=== PATIENT | female | born 1975 | race Caucasian/White ===

== ENCOUNTER 2018-10-30 22:36 | Emergency (ER) | payer OTHER, SELFPAY ==
[2018-10-30 22:45] VITALS: BP 148/120; PULSE 72; RESP 22; TEMP 36.4; O2SAT 100; BMI 20.1
--- NOTE | 2018-10-30 22:55 | DI.RAD.S_ITS ---
PROCEDURE: XR CHEST 1V INDICATIONS: chest pain TECHNIQUE: One view of the chest was acquired. COMPARISON: None. FINDINGS: Surgical changes and devices: None. Lungs and pleura: Lungs are clear. No pleural effusions or pneumothorax. Mediastinum: Mediastinal contours appear normal. Heart size is normal. Bones and chest wall: No suspicious bony lesions. Overlying soft tissues appear unremarkable. IMPRESSION: Normal for age, source of current chest pain symptoms is not seen. Note: These findings are concordant with the preliminary interpretation. Dictated by: Juan Diego Sanford M.D. on 10/31/2018 at 8:06 Approved by: Juan Diego Sanford M.D. on 10/31/2018 at 8:07
[2018-10-30 23:08] VITALS: BP 99/65; PULSE 70; RESP 18; O2SAT 98
--- NOTE | 2018-10-30 23:21 | PC.NURSE ---
pt reports woke this AM with extreme fatigue, continued throughout day, approx 2100 acute onset stabbing chest pain and extreme weakness duration <10 min, denies cp/soa at time of exam, denies fever/chills/nausea/vomiting/diarrhea/dysuria/trauma or recent illness, nsr on monitor, normal resp rate/depth, c/o just tired
[2018-10-30 23:22] LABS: Prothrombin Time 11.1 SECONDS (10.1-12.7)
[2018-10-30 23:23] LABS: Add Manual Diff / Slide Review NO; Basophils Absolute Auto 0 /uL (0-100); Basophils Percent Auto 0.4 % (0-2); Eosinophils Absolute Auto 200 /uL (0-450); Eosinophils Percent Auto 3.3 % (2-4); Hemoglobin 12.9 g/dL (12.0-16.0); Lymphocytes Absolute Auto 2000 /uL (1100-4500); Lymphocytes Percent Auto 36.9 % (25-40); Mean Corpuscular HGB Conc 33.9 % (30-36); Mean Corpuscular Hemoglobin 31.9 PG (26-34); Mean Corpuscular Volume 94.1 fL (80-100); Monocytes Absolute Auto 500 /uL (0-900); Monocytes Percent Auto 8.6 % (3-14); Neutrophils Absolute Auto 2700 /uL (1500-7000); Neutrophils Percent Auto 50.8 % (50-75); Platelet Count 225 X10^3/uL (150-400); Red Blood Cell Count 4.04 X10^6/uL (4.0-5.2); Red Cell Distribution Width 13.3 % (11.6-14.8); White Blood Cell Count 5.3 X10^3/uL (4.5-11.0)
--- NOTE | 2018-10-30 23:24 | ED.CHESTPAIN ---
HPI - Chest Pain General Chief Complaint: Chest Pain Stated Complaint: DIFFICULTY BREATHING Time Seen by Provider: 10/30/18 23:00 Source: patient and family Mode of arrival: ambulatory Limitations: no limitations History of Present Illness HPI narrative: Patient is a 43-year-old female who presents with chest pain. She actually has been having extreme fatigue she says all day today and has not felt right. However he was lying in bed she felt some tingling in her arms and then she had severe sudden sternal chest pain. No radiation. It lasted for about 1 hour. It was so sharp felt like she could not catch her breath then she started breathing faster and still could not breathe. Is now resolved completely. She is having her thyroid workup for her fatigue. She actually has had a TSH and free T4 and antibodies checked at the [place] not happy with those results so she is going to a personnel research scientist this week. In no family history chest pain overall feeling better. MD complaint: chest pain Related Data Allergies Allergy/AdvReac Type Severity Reaction Status Date / Time No Known Drug Allergies Allergy Verified 10/30/18 22:47 Review of Systems Review of Systems ROS Unobtainable: All systems reviewed & are unremarkable except as noted in HPI and below Constitutional Denies chills, Reports fatigue, Denies frequent falls and Denies malaise ENT Ears, Nose, Mouth, and Throat: Denies change in voice, Denies dizziness, Denies neck pain and Denies sore throat Cardiovascular Reports chest pain, Denies irregular heart rhythm, Denies lightheadedness, Denies palpitations, Reports dyspnea and Denies orthopnea Respiratory Reports as per HPI, Denies cough, Reports dyspnea and Denies wheezing Gastrointestinal Gastrointestinal: Denies abdominal pain, Denies change in bowel habits, Denies diarrhea, Denies nausea and Denies vomiting Genitourinary Denies hematuria, Denies flank pain, Denies urinary incontinence and Denies urinary urgency Musculoskeletal Denies neck pain and Denies numbness Integumentary/Breasts Denies pruritus, Denies erythema, Denies rash and Denies wounds Neurologic Denies behavioral changes, Denies confusion, Denies dizziness, Denies frequent falls and Denies numbness Psychiatric Denies behavioral changes and Denies confusion Endocrine Reports fatigue and Denies palpitations Allergic/Immunologic Denies wheezing [facility] Medical History Patient denies significant medical history (Acute) Social History Smoking Status: Never smoker Social History Smoking Status: Never smoker Exam Initial Vital Signs Initial Vital Signs: Vital Signs Temperature 97.5 F L 10/30/18 22:45 Pulse Rate 72 10/30/18 22:45 Respiratory Rate 22 10/30/18 22:45 Blood Pressure 148/120 H 10/30/18 22:45 Pulse Oximetry 100 10/30/18 22:45 GENERAL: Well-appearing, well-nourished and in no acute distress. HEENT: Head atraumatic,EOMI, pupils reactive, face symmetric, moist mucous membranes CARDIOVASCULAR: Regular rate and rhythm without murmurs, rubs or gallops. RESPIRATORY: Breath sounds equal bilaterally, no wheezes rales or rhonchi. ABDOMEN: Soft, nontender. Normoactive bowel sounds all 4 quadrants. No guarding or rebound. EXTREMITIES: Normal range of motion, no clubbing or edema. Neurovascularly intact NEUROLOGICAL: Alert and oriented x4.Normal gait and speech. Cranial nerves II through XII grossly intact. SKIN: Warm, dry, no laceration, no petechiae, no rashes or lesions. Scores HEART Score Heart Score history: Slightly Suspicious Heart Score EKG: Normal Heart Score Age: < 45 years old Heart Score troponin: < or = to normal limit PERC Score Age greater than or equal to 50 years: No Heart rate greater than or equal to 100 bpm: No Room Air O2 Sat less than 95%: No Unilateral leg swelling: No Recent trauma or surgery: No Hemoptysis: No Prior PE or DVT: No Hormone Use: No Total PERC Score: 0 Wells' Criteria for PE Clinical signs and symptoms of PE: No PE is #1 Dx or equally likely: No Heart rate > 100: No Immobilization at least 3 days or surg in previous 4 weeks: No History of PE or DVT: No Hemoptysis: No Malignancy w/Treatment within 6 months or palliative: No Wells' PE Score total: 0 Course Orders Ordered: ED Orders 10/30/18 22:55 XR chest 1V Stat EKG-12 Lead Stat 10/30/18 23:08 Complete Blood Count AUTO DIFF Stat Comprehensive Metabolic Panel Stat Lipase Stat Partial Thromboplastin Time Stat Prothrombin Time INR Stat Troponin & CK Cardiac Panel Stat 10/31/18 00:11 EKG-12 Lead Stat 10/31/18 01:58 Troponin I Stat Discontinued Medications Ketorolac Tromethamine (Toradol) 30 mg IV NOW ONE Stop: 10/31/18 00:41 Last Admin: 10/31/18 00:48 Dose: 30 mg Vital Signs - 8 hr 10/30/18 22:45 10/30/18 23:08 10/31/18 00:17 Temperature 97.5 F L Pulse Rate 72 70 75 Respiratory Rate 22 18 13 Blood Pressure 148/120 H Blood Pressure [Left Arm] 99/65 95/64 Pulse Oximetry 100 98 99 10/31/18 02:30 Temperature Pulse Rate 62 Respiratory Rate 15 Blood Pressure Blood Pressure [Left Arm] 102/69 Pulse Oximetry 99 MDM - Chest Pain Lab Data Attestation: I reviewed the patient's lab results. Result diagrams: 10/30/18 23:08 10/30/18 23:08 Lab Results 10/30/18 10/30/18 10/30/18 Range/Units 23:08 23:08 23:08 WBC 5.3 (4.5-11.0) X10^3/uL RBC 4.04 (4.0-5.2) X10^6/uL Hgb 12.9 (12.0-16.0) g/dL Hct 38.0 (36-46) % MCV 94.1 (80-100) fL MCH 31.9 (26-34) PG MCHC 33.9 (30-36) % RDW 13.3 (11.6-14.8) % Plt Count 225 (150-400) X10^3/uL Neut % (Auto) 50.8 (50-75) % Lymph % (Auto) 36.9 (25-40) % [place] % (Auto) 8.6 (3-14) % Eos % (Auto) 3.3 (2-4) % Baso % (Auto) 0.4 (0-2) % Neut # (Auto) 2700 (7068-5205) /uL Lymph # (Auto) 2000 (4682-1080) /uL [place] # (Auto) 500 (0-900) /uL Eos # (Auto) 200 (0-450) /uL Baso # (Auto) 0 (0-100) /uL PT 11.1 (10.1-12.7) SECONDS INR 1.0 (0.9-1.3) APTT 33 (26.4-36.2) SECONDS Sodium 138 (137-145) mmol/L Potassium 3.7 (3.4-5.1) mmol/L Chloride 106 (98-107) mmol/L Carbon Dioxide 25 (22-32) mmol/L BUN 23 H (7-17) mg/dL Creatinine 0.70 (0.52-1.04) mg/dL Estimated GFR > 60.0 (>60) mL/min BUN/Creatinine Ratio 32.9 H (6-22) Glucose 104 H (70-100) mg/dL Calcium 9.1 (8.4-10.2) mg/dL Total Bilirubin 0.4 (0.2-1.3) mg/dL AST 27 (14-36) IU/L ALT 18 (9-52) IU/L Alkaline Phosphatase 56 (38-126) U/L Total Creatine Kinase 62 (30-135) U/L CK-MB (CK-2) TNP CK-MB (CK-2) Rel Index TNP Troponin I < 0.012 (0.01-0.034) ng/mL Total Protein 6.9 (6.3-8.2) g/dL Albumin 4.0 (3.5-5.0) g/dL Globulin 2.9 (1.7-4.1) g/dL Albumin/Globulin Ratio 1.4 (1.0-2.8) Lipase 146 (23-300) U/L 10/31/18 Range/Units 01:58 WBC (4.5-11.0) X10^3/uL RBC (4.0-5.2) X10^6/uL Hgb (12.0-16.0) g/dL Hct (36-46) % MCV (80-100) fL MCH (26-34) PG MCHC (30-36) % RDW (11.6-14.8) % Plt Count (150-400) X10^3/uL Neut % (Auto) (50-75) % Lymph % (Auto) (25-40) % [place] % (Auto) (3-14) % Eos % (Auto) (2-4) % Baso % (Auto) (0-2) % Neut # (Auto) (8585-4153) /uL Lymph # (Auto) (3959-8833) /uL [place] # (Auto) (0-900) /uL Eos # (Auto) (0-450) /uL Baso # (Auto) (0-100) /uL PT (10.1-12.7) SECONDS INR (0.9-1.3) APTT (26.4-36.2) SECONDS Sodium (137-145) mmol/L Potassium (3.4-5.1) mmol/L Chloride (98-107) mmol/L Carbon Dioxide (22-32) mmol/L BUN (7-17) mg/dL Creatinine (0.52-1.04) mg/dL Estimated GFR (>60) mL/min BUN/Creatinine Ratio (6-22) Glucose (70-100) mg/dL Calcium (8.4-10.2) mg/dL Total Bilirubin (0.2-1.3) mg/dL AST (14-36) IU/L ALT (9-52) IU/L Alkaline Phosphatase (38-126) U/L Total Creatine Kinase (30-135) U/L CK-MB (CK-2) CK-MB (CK-2) Rel Index Troponin I < 0.012 (0.01-0.034) ng/mL Total Protein (6.3-8.2) g/dL Albumin (3.5-5.0) g/dL Globulin (1.7-4.1) g/dL Albumin/Globulin Ratio (1.0-2.8) Lipase (23-300) U/L Imaging Data Chest x-ray: Attestation: I personally reviewed and interpreted this imaging study as follows: My impression: No acute cardiopulmonary process ECG Data Attestation: I personally reviewed and interpreted this ECG as follows: Prior ECG tracings: not available for review Interpretation: EKG 1.: Normal sinus rhythm rate [address] changes no T-wave inversions EKG 2. Sinus rhythm rate 72 no changes from prior MDM Narrative Medical decision making narrative: Patient's pain initially improved upon arrival to the ED. However she started having chest pain again. She was given Toradol. Actually does not change slightly with position she states that it gets better when she lies back. She has no PE are depression is or indication on EKG of pericarditis. Although possible. She also is a very anxious person. 2 troponins and 2 EKGs negative. She is low risk for cardiac disease. She has no sign of infection. No fever or leukocytosis. She says she has extreme fatigue for 1 day, [place], At this time she can have outpatient workup of her fatigue. Overall patient feeling better. Discussed warning signs of when to return to the ED. Discharge Plan Departure Patient Disposition: Home Clinical Impression: Atypical chest pain Discharge Date/Time: 10/31/18 02:43 Interventions: ED Discharge Assessment Last Done: 10/31/18 02:43 Instructions: DI for Atypical Chest Pain Activity Restrictions/Additional Instructions: *You have been diagnosed with atypical chest pain *What to do: You may require outpatient heart testing with her PCP. However at this time EKGs in blood work and x-ray are reassuring. *Continue to take medications as directed *Follow up with your primary care provider in 2-3 days *Return to ER if you should have worsening chest pain, shortness of breath passing or any new, worsening or concerning symptoms
[2018-10-30 23:25] LABS: PTT Partial Thromboplastin Tim 33 SECONDS (26.4-36.2)
[2018-10-30 23:28] LABS: Alanine Aminotransferase 18 IU/L (9-52); Albumin Globulin Ratio 1.4 (1.0-2.8); Alkaline Phosphatase 56 U/L (38-126); Aspartate Aminotransferase 27 IU/L (14-36); BUN Creatinine Ratio 32.9 (6-22); Bilirubin Total 0.4 mg/dL (0.2-1.3); Blood Urea Nitrogen 23 mg/dL (7-17); Calcium 9.1 mg/dL (8.4-10.2); Carbon Dioxide 25 mmol/L (22-32); Chloride 106 mmol/L (98-107); Creatine Kinase 62 U/L (30-135); Estimated Glomerular Filt Rate > 60.0 mL/min (>60); Globulin 2.9 g/dL (1.7-4.1); Glucose 104 mg/dL (70-100); HEMOLYSIS < 15 (0-50); Lipase 146 U/L (23-300); Potassium 3.7 mmol/L (3.4-5.1); Sodium 138 mmol/L (137-145); Total Protein 6.9 g/dL (6.3-8.2)
[2018-10-30 23:40] LABS: Troponin I < 0.012 ng/mL (0.01-0.034)
--- NOTE | 2018-10-31 00:11 | PC.NURSE ---
0011 pt reports acute onset cp similar to previous episode, remains in NSR rate 84 MD notified RT called for repeat ekg, pt reports pain unchanged with inspiration, increased with leaning forward
[2018-10-31 00:17] VITALS: BP 95/64; PULSE 75; RESP 13; O2SAT 99
[2018-10-31] MEDS: KETOROLAC 60 MG/2 ML VIAL 30 MG IV (00:48)
[2018-10-31 02:28] LABS: Troponin I < 0.012 ng/mL (0.01-0.034)
[2018-10-31 02:30] VITALS: BP 102/69; PULSE 62; RESP 15; O2SAT 99
== END 2018-10-31 02:43 | disposition home or self-care (01) ==
PROVIDERS: Emergency Provider Emergency Medicine
DX: R07.89 Other chest pain (principal); R53.83 Other fatigue; R06.00 Dyspnea, unspecified
CPT/HCPCS: 36415; 36591; 71045; 80053; 82550; 83690; 84484; 85025; 85610; 85730; 93005; 96374; 99283; 99285; J1885